=== PATIENT | female | born 1935 | race Caucasian/White ===

== ENCOUNTER 2019-07-29 14:12 | Day surgery (SDC) | payer MEDICARE ==
[~2019-07-29 14:12] MED LIST: Acetaminophen 500 MG TAB PO PRN; Sodium Chloride 0.9% 1,000 ML IV SCH; Vedolizumab 300 MG in Sodium Chloride 0.9% 250 ML 250 ML IVPB SCH
[2019-07-29 15:23] VITALS: BP 135/60; TEMP 98.1
== END 2019-07-29 15:27 | disposition home or self-care (01) ==
LOC: ONC/OP 14:12
PROVIDERS: ATTEND Internal Medicine Gastroenterology
DX: K51.90 Ulcerative colitis, unspecified, without complications (principal); Z88.0 Allergy status to penicillin; Z88.1 Allergy status to other antibiotic agents; Z88.8 Allergy status to other drugs, medicaments and biological substances
CPT/HCPCS: 96413; J3380; J7050

== ENCOUNTER 2019-08-16 14:01 | Outpatient (CLI) | payer MEDICARE ==
--- NOTE | 2019-08-16 14:46 | RAD ---
EXAM: XR Lumbar Spine 2 Or 3 View PROVIDED CLINICAL HISTORY: Numbness in hips and legs for 3 to 4 weeks. Low back pain. No known injury. COMPARISON: None FINDINGS: 5 nonrib-bearing lumbar-type vertebral bodies are present. Mild S-shaped curvature of thoracolumbar s pine is present. There is narrowing of the intervertebral disc spaces extending from the L2-3 level to the L5-S1 level with endplate degenerative changes are seen at the L4-5 level. Multilevel facet de generative changes are seen. Slight grade 1 anterolisthesis of L2 on L3 and L3 on L4 is seen. The vertebral body heights are within normal limits, and no fracture is identified. Multilevel osteophyte s are present. There is a linear lucency extending through the pars interarticularis of L5, but this is favored to be artifactual as opposed to pars defects. Vascular calcifications overlie the abd omen. IMPRESSION: 1. Multilevel degenerative changes with mild S-shaped scoliotic curvature of the thoracolumbar spine. 2. Slight anterolisthesis of L2 on L3 and L3 on L4.
--- NOTE | 2019-08-16 14:49 | RAD ---
EXAM: XR Cervical Spine 4 View Min PROVIDED CLINICAL HISTORY: Neck pain and shoulder numbness for 3 to 4 weeks. No known injury. COMPARISON: None FINDINGS: C1 to the cervicothoracic junction is seen on the lateral view. AP and odontoid views are not provide d. Degenerative changes are seen in the cervical spine with osteophyte formation and narrowing of the intervertebral disc spaces at the C5-C6, C6-7, and C7-T1 levels. No significant bony encroachment is seen on the neural foramina on the oblique views. Vertebral body heights and interspinous distances are within normal limits. Prevertebral soft tissues have a normal appearance. IMPRESSION: Multilevel degenerative changes cervical spine.
== END 2019-08-16 14:02 | disposition home or self-care (01) ==
LOC: BICRAD 14:01
PROVIDERS: ATTEND Family Medicine
DX: M54.5 Low back pain (principal); M54.2 Cervicalgia; M47.812 Spondylosis without myelopathy or radiculopathy, cervical region; M43.16 Spondylolisthesis, lumbar region; M41.9 Scoliosis, unspecified
CPT/HCPCS: 72050; 72100

== ENCOUNTER 2019-08-24 15:08 | Outpatient (CLI) | payer MEDICARE ==
--- NOTE | 2019-08-24 16:37 | MRI ---
MRI LUMBAR SPINE NONCONTRAST: DATE: 08/24/2019 HISTORY: 84-year-old female with low back pain and bilateral lumbar radiculopathy. ICD-10: "M 47.16 spondylosis of lumbar spine " COMPARISON: None FINDINGS: 5 lumbar-type vertebrae. Conus medullaris terminates at L1 2-3. Vertebral body heights are maintained . T12-L1:Normal L1-2:Disc space maintained. Minimal retrolisthesis of L1 on L2. Mild disc bulge. Minimal central sten osis. Mild bilateral neural foraminal stenosis. Mild bilateral facet DJD. L2-3:Moderate bilateral facet DJD results in mild grade 1 anterolisthesis of L2 on L3. Mild to modera te disc space narrowing. Diffuse disc bulge. Mild bilateral neural foraminal stenosis. Distortion of spinal canal and thecal sac. Mild to moderate decrease in AP dimension of thecal sac. Transverse d imension preserved. L3-4:Moderate to severe bilateral facet DJD results in grade 1 anterolisthesis of L3 on L4. Moderate disc space narrowing. Prominent diffuse disc bulge. Mild to moderate bilateral neural foraminal stenosis. Somewhat severe central spinal canal stenosis. CSF signal is not completely effaced. L4-5:Moderate disc space narrowing. Degenerative endplate irregularities and mild Modic type I endpla te changes as well as Modic type II changes. Disc bulge. Mild to moderate right neural foraminal stenosis. Lesser degree of mild to moderate left neural foraminal stenosis. Moderate bilateral facet DJD. Mild to moderate central spinal canal stenosis. Moderate lateral recess stenosis bilaterally. L5-S1:Mild disc space narrowing. Diffuse disc bulge. Superimposed small focal central disc herniation abuts bilateral S1 nerve roots without significantly displacing them. Mild lateral recess stenosis bilaterally. Very mild central spinal canal stenosis. Moderate ligamentum flavum thickening. Moderate bilateral facet DJD. IMPRESSION: 1) lumbar spondylosis, with multilevel moderate degenerative disc disease and lower level high-grade facet osteoarthrosis. 2) grade 1 spondylolisthesis at L2-3 and L3-4 due to facet osteoarthrosis. 3) somewhat severe central spinal canal stenosis at L3-4.
== END 2019-08-24 15:09 | disposition home or self-care (01) ==
LOC: BICMRI 15:08
PROVIDERS: ATTEND Family Medicine
DX: M47.26 Other spondylosis with radiculopathy, lumbar region (principal); M51.16 Intervertebral disc disorders with radiculopathy, lumbar region; M43.16 Spondylolisthesis, lumbar region; M48.061 Spinal stenosis, lumbar region without neurogenic claudication
CPT/HCPCS: 72148

== ENCOUNTER 2019-09-28 13:50 | Day surgery (SDC) | payer MEDICARE ==
[~2019-09-28 13:50] MED LIST changes: +Acetaminophen 500 MG TAB PO SCH
[2019-09-28] MEDS ORDERED: Sodium Chloride 0.9% 20 ML ONE (13:58)
[2019-09-28 14:01] VITALS: BP 146/66; TEMP 98.6
== END 2019-09-28 14:49 | disposition home or self-care (01) ==
LOC: ONC/OP 13:50
PROVIDERS: ATTEND Internal Medicine Gastroenterology
DX: K51.90 Ulcerative colitis, unspecified, without complications (principal); Z88.0 Allergy status to penicillin; Z88.1 Allergy status to other antibiotic agents; Z88.6 Allergy status to analgesic agent; Z88.8 Allergy status to other drugs, medicaments and biological substances
CPT/HCPCS: 96413; J3380; J7050

== ENCOUNTER → 2019-12-07 | Day surgery (SDC) | payer MEDICARE ==
[2019-12-07 14:27] VITALS: BP 141/64; TEMP 97.6
== END ==
LOC: ONC/OP 14:20
PROVIDERS: ATTEND Internal Medicine Gastroenterology
DX: K51.90 Ulcerative colitis, unspecified, without complications (principal); Z88.0 Allergy status to penicillin; Z88.1 Allergy status to other antibiotic agents; Z88.8 Allergy status to other drugs, medicaments and biological substances
CPT/HCPCS: 96413; J3380; J7050

== ENCOUNTER 2020-02-09 13:50 | Day surgery (SDC) | payer MEDICARE ==
[2020-02-09 15:06] VITALS: BP 127/60; TEMP 98.5
== END 2020-02-09 15:22 | disposition home or self-care (01) ==
LOC: ONC/OP 13:50
PROVIDERS: ATTEND Internal Medicine Gastroenterology
DX: K51.90 Ulcerative colitis, unspecified, without complications (principal); Z88.0 Allergy status to penicillin; Z88.1 Allergy status to other antibiotic agents; Z88.6 Allergy status to analgesic agent; Z88.8 Allergy status to other drugs, medicaments and biological substances
CPT/HCPCS: 96413; J3380; J7050

== ENCOUNTER 2020-04-12 13:56 | Day surgery (SDC) | payer MEDICARE | END 2020-04-12 16:05 | disposition home or self-care (01) | LOC: ONC/OP 13:56 | PROVIDERS: ATTEND Internal Medicine Gastroenterology | DX: K51.90 Ulcerative colitis, unspecified, without complications (principal); Z88.0 Allergy status to penicillin; Z88.1 Allergy status to other antibiotic agents; Z88.8 Allergy status to other drugs, medicaments and biological substances | CPT/HCPCS: 96413; J3380; J7050 ==

== ENCOUNTER 2020-06-28 14:33 | Day surgery (SDC) | payer MEDICARE ==
[~2020-06-28 14:33] MED LIST changes: -Acetaminophen 500 MG TAB PO SCH; -Sodium Chloride 0.9% 1,000 ML IV SCH
== END 2020-06-28 15:39 | disposition home or self-care (01) ==
LOC: ONC/OP 14:33
PROVIDERS: ATTEND Internal Medicine Gastroenterology
DX: K51.90 Ulcerative colitis, unspecified, without complications (principal); Z88.0 Allergy status to penicillin; Z88.1 Allergy status to other antibiotic agents; Z88.8 Allergy status to other drugs, medicaments and biological substances
CPT/HCPCS: 96413; J3380; J7050

== ENCOUNTER 2020-08-09 14:19 | Day surgery (SDC) | payer MEDICARE ==
[2020-08-09 15:05] VITALS: BP 134/60; TEMP 97.9
== END 2020-08-09 15:53 | disposition home or self-care (01) ==
LOC: ONC/OP 14:19
PROVIDERS: ATTEND Internal Medicine Gastroenterology
DX: K51.90 Ulcerative colitis, unspecified, without complications (principal); Z88.0 Allergy status to penicillin; Z88.1 Allergy status to other antibiotic agents; Z88.6 Allergy status to analgesic agent; Z88.8 Allergy status to other drugs, medicaments and biological substances
CPT/HCPCS: 96413; J3380; J7050

== ENCOUNTER 2020-10-04 14:20 | Day surgery (SDC) | payer MEDICARE ==
[2020-10-04 14:51] VITALS: BP 124/58; TEMP 98.7
== END 2020-10-04 16:29 | disposition home or self-care (01) ==
LOC: ONC/OP 14:20
PROVIDERS: ATTEND Internal Medicine Gastroenterology
DX: K51.90 Ulcerative colitis, unspecified, without complications (principal); Z88.0 Allergy status to penicillin; Z88.1 Allergy status to other antibiotic agents; Z88.6 Allergy status to analgesic agent; Z88.8 Allergy status to other drugs, medicaments and biological substances
CPT/HCPCS: 96413; J3380; J7050

== ENCOUNTER 2020-10-25 12:35 | Outpatient (CLI) | payer MEDICARE | END 2020-10-25 12:36 | disposition home or self-care (01) | LOC: BICMRI 12:35 | PROVIDERS: ATTEND Surgery | DX: M47.26 Other spondylosis with radiculopathy, lumbar region (principal); M43.16 Spondylolisthesis, lumbar region; M48.061 Spinal stenosis, lumbar region without neurogenic claudication; M48.07 Spinal stenosis, lumbosacral region | CPT/HCPCS: 72110; 72148 ==

== ENCOUNTER 2020-11-22 12:48 | Day surgery (SDC) | payer MEDICARE ==
[2020-11-22] MEDS ORDERED: Sodium Chloride 0.9% 20 ML ONE (12:53)
[2020-11-22 13:37] VITALS: BP 141/65; TEMP 98.4
== END 2020-11-22 13:57 | disposition home or self-care (01) ==
LOC: ONC/OP 12:48
PROVIDERS: ATTEND Internal Medicine Gastroenterology
DX: K51.90 Ulcerative colitis, unspecified, without complications (principal); Z88.0 Allergy status to penicillin; Z88.1 Allergy status to other antibiotic agents; Z88.8 Allergy status to other drugs, medicaments and biological substances
CPT/HCPCS: 96413; J3380; J7050

== ENCOUNTER 2020-12-07 16:04 | Outpatient (CLI) | payer MEDICARE ==
[2020-12-07 17:28] LABS: Hemoglobin 11.6 g/dL (12.0-15.5); Mean Corpuscular HGB CONC 32.2 g/dL (32.0-36.0); Mean Corpuscular Hemoglobin 30.2 pg (27.0-33.0); Mean Corpuscular Volume 93.8 fl (81.6-98.3); Mean Platelet Volume 10.6 fl (7.4-10.4); Platelet Count 300 10x3/uL (150-450); RBC Distribution Width 13.4 % (11.5-14.5); Red Blood Cell (RBC) Count 3.84 10x6/uL (3.90-5.03); White Blood Cell (WBC) Count 8.1 10x3/uL (3.5-10.5)
[2020-12-07 17:38] LABS: Anion Gap 14 mmol/L (10-20); BUN (Urea Nitrogen) 16 mg/dL (9.8-20.1); Calc. Creatinine Clearance 0 mL/min (70-130); Calcium 9.7 mg/dL (7.8-10.44); Carbon Dioxide 23 mmol/L (23-31); Chloride 102 mmol/L (98-107); Glucose 124 mg/dL (83-110); PTT 26.2 sec (22.0-33.0); Potassium 4.3 mmol/L (3.5-5.1); Prothrombin Time 10.7 sec (9.5-12.1); Sodium 135 mmol/L (136-145)
[2020-12-08 09:11] LABS: SARS-CoV-2 PCR by NAA Not Detected (NotDetected)
== END 2020-12-07 16:05 | disposition home or self-care (01) ==
LOC: LABBT 16:04
PROVIDERS: ATTEND Surgery
DX: Z01.818 Encounter for other preprocedural examination (principal); M54.16 Radiculopathy, lumbar region; M48.062 Spinal stenosis, lumbar region with neurogenic claudication; K14.8 Other diseases of tongue; K13.70 Unspecified lesions of oral mucosa; Z20.822 Contact with and (suspected) exposure to COVID-19
CPT/HCPCS: 80048; 85027; 85610; 85730; 93005; U0003; U0005; 93010

== ENCOUNTER 2020-12-12 08:31 | Inpatient (IN) | payer MEDICARE ==
[2020-12-11 13:10] VITALS: BMI 26.6
[2020-12-12] MEDS ORDERED: Levofloxacin 500 mg/D5W 100 ml Premix Bag ONE (08:56)
[2020-12-12] MEDS ORDERED: PROPOFOL 20 ML ONE (11:09)
[2020-12-12] MEDS ORDERED: Rocuronium Bromide 50 MG/5 ML VIAL ONE (11:09)
[2020-12-12] MEDS ORDERED: Thrombin 5000 UNITS/5 ML VIAL ONE ×2 (12:50)
[2020-12-12] MEDS ORDERED: Fentanyl 250 MCG/5 ML VIAL ONE (12:56)
[2020-12-12] MEDS ORDERED: Ketamine 50 MG/ML (10ML VIAL) ONE (13:08)
[2020-12-12] MEDS ORDERED: Fentanyl 100 MCG/2 ML VIAL ONE ×5 (13:13→17:12)
[2020-12-12] MEDS ORDERED: Glycopyrrolate 0.2 MG/ML 5 ML SYRINGE ONE (13:23)
[2020-12-12] MEDS ORDERED: Lidocaine 1% PF 5 ML VIAL ONE (13:23)
[2020-12-12] MEDS ORDERED: PROPOFOL 200 MG/20 ML VIAL ONE (13:23)
[2020-12-12] MEDS ORDERED: Rocuronium Bromide 10 MG/ML (10ML VIAL) ONE (13:23)
[2020-12-12] MEDS ORDERED: PHENYLEPHRINE-NS 100 MCG/ML 10 ML SYRINGE ONE (13:23)
[2020-12-12] MEDS ORDERED: Phenylephrine 10 MG/ML VIAL ONE (13:46)
[2020-12-12] MEDS ORDERED: Acetaminophen 325 MG TAB PO PRN (15:56)
[2020-12-12] MEDS ORDERED: Ondansetron HCl/PF 4 MG/2 ML Vial IVP PRN (16:09)
[2020-12-12] MEDS ORDERED: Morphine Sulfate 2 MG/ML SYRINGE SLOW IVP PRN (16:09)
[2020-12-12] MEDS ORDERED: Morphine 4 MG/ML VIAL ONE (16:35)
[2020-12-12] MEDS: Sodium Chloride 0.9% 1,000 ML IV SCH (19:24)
[2020-12-12] MEDS: traMADol HCl 50 MG TAB PO PRN (19:34)
[2020-12-12] MEDS: Fluticasone Propionate Nasal Spray 16 gm Bottle NASAL SCH (20:50)
[2020-12-12] MEDS: Senokot 8.6 MG TAB PO PRN (21:02)
[2020-12-12] MEDS: Acetaminophen/Codeine 30-300mg Tablet PO PRN (21:51)
[2020-12-13] MEDS: HYDROcodone/Acetaminophen 7.5/325 mg Tablet PO PRN ×2 (01:05→11:25)
[2020-12-13] MEDS: traMADol HCl 50 MG TAB PO PRN ×2 (05:36→16:43)
[2020-12-13] MEDS: Levothyroxine Sodium 50 MCG TAB PO SCH (05:36)
[2020-12-13] MEDS: Sodium Chloride 0.9% 1,000 ML IV SCH ×2 (06:38→17:31)
[2020-12-13] MEDS: Mometasone 100 MCG/Formoterol 5 MCG 120 PUFF INHALER INH SCH (06:46)
[2020-12-13] MEDS: Acetaminophen/Codeine 30-300mg Tablet PO PRN (08:10)
[2020-12-13] MEDS: Escitalopram Oxalate 10 mg Tablet PO SCH (08:11)
[2020-12-13] MEDS: guaiFENesin/DM ER PO SCH ×2 (10:21→21:36)
[2020-12-13] MEDS: Calcium Carbonate 500 MG ChewTAB PO PRN ×2 (11:24→22:30)
[2020-12-13 11:27] LABS: #Eosinphils 0.1 thou/uL (0.0-0.7); #Lymphocytes 0.9 thou/uL (1.20-3.40); #Monocytes 0.8 thou/uL (0.11-0.59); #Neutrophils 7.3 thou/uL (1.40-6.50); %Basophils 0.4 % (0.0-1.0); %Eosinophils 1.4 % (0.0-10.0); %Lymphocytes 9.9 % (21.0-51.0); %Monocytes 8.7 % (0.0-10.0); %Neutrophils 79.6 % (42.0-75.0); Hemoglobin 10.1 g/dL (12.0-16.0); Mean Corpuscular HGB CONC 33.7 g/dL (32.0-36.0); Mean Corpuscular Hemoglobin 31.6 pg (27.0-31.0); Mean Corpuscular Volume 93.7 fL (78.0-98.0); Mean Platelet Volume 7.8 fL (7.4-10.4); Platelet Count 235 thou/uL (130-400); RBC Distribution Width 12.3 % (11.5-14.5); Red Blood Cell (RBC) Count 3.19 mill/uL (4.20-5.40); White Blood Cell (WBC) Count 9.2 thou/uL (4.8-10.8)
[2020-12-13 11:47] LABS: Anion Gap 12 mmol/L (10-20); BUN (Urea Nitrogen) 10 mg/dL (9.8-20.1); Calc. Creatinine Clearance 57 mL/min (70-130); Calcium 8.5 mg/dL (7.8-10.44); Carbon Dioxide 24 mmol/L (23-31); Chloride 102 mmol/L (98-107); Glucose 112 mg/dL (83-110); Potassium 3.8 mmol/L (3.5-5.1); Sodium 134 mmol/L (136-145)
[2020-12-13] MEDS ORDERED: Ondansetron PF 4 MG/2 ML Vial IVP PRN (12:33)
[2020-12-13] MEDS: Chloraseptic Spray 180 ml Bottle PO PRN (14:29)
[2020-12-13] MEDS: Morphine 2 MG/ML VIAL SLOW IVP PRN ×3 (16:43→21:35)
[2020-12-13] MEDS: SUCRALFATE PO PRN (21:35)
[2020-12-13] MEDS: Fluticasone Propionate Nasal Spray 16 gm Bottle NASAL SCH (21:36)
[2020-12-14] MEDS: Senokot 8.6 MG TAB PO PRN ×2 (00:48→20:21)
[2020-12-14] MEDS: HYDROcodone/Acetaminophen 7.5/325 mg Tablet PO PRN ×4 (00:49→18:27)
[2020-12-14] MEDS: Levothyroxine Sodium 50 MCG TAB PO SCH (05:42)
[2020-12-14] MEDS: Calcium Carbonate 500 MG ChewTAB PO PRN (06:16)
[2020-12-14 06:29] LABS: #Eosinphils 0.1 thou/uL (0.0-0.7); #Lymphocytes 1.4 thou/uL (1.20-3.40); #Monocytes 1.1 thou/uL (0.11-0.59); #Neutrophils 7.9 thou/uL (1.40-6.50); %Basophils 0.1 % (0.0-1.0); %Eosinophils 0.7 % (0.0-10.0); %Lymphocytes 13.7 % (21.0-51.0); %Monocytes 10.2 % (0.0-10.0); %Neutrophils 75.3 % (42.0-75.0); Hemoglobin 9.7 g/dL (12.0-16.0); Mean Corpuscular HGB CONC 32.5 g/dL (32.0-36.0); Mean Corpuscular Hemoglobin 30.5 pg (27.0-31.0); Mean Corpuscular Volume 93.6 fL (78.0-98.0); Mean Platelet Volume 7.9 fL (7.4-10.4); Platelet Count 222 thou/uL (130-400); RBC Distribution Width 12.2 % (11.5-14.5); Red Blood Cell (RBC) Count 3.18 mill/uL (4.20-5.40); White Blood Cell (WBC) Count 10.5 thou/uL (4.8-10.8)
[2020-12-14 06:52] LABS: Anion Gap 11 mmol/L (10-20); BUN (Urea Nitrogen) 8 mg/dL (9.8-20.1); Calc. Creatinine Clearance 60 mL/min (70-130); Calcium 8.6 mg/dL (7.8-10.44); Carbon Dioxide 25 mmol/L (23-31); Chloride 103 mmol/L (98-107); Glucose 129 mg/dL (83-110); Potassium 3.8 mmol/L (3.5-5.1); Sodium 135 mmol/L (136-145)
[2020-12-14] MEDS: DEXILANT 60 MG PO SCH (07:20)
[2020-12-14] MEDS: Escitalopram Oxalate 10 mg Tablet PO SCH (09:01)
[2020-12-14] MEDS: guaiFENesin/DM ER PO SCH ×2 (09:02→20:22)
[2020-12-14] MEDS: Chloraseptic Spray 180 ml Bottle PO PRN (09:12)
[2020-12-14] MEDS: Mometasone 100 MCG/Formoterol 5 MCG 120 PUFF INHALER INH SCH ×3 (10:04→18:55)
[2020-12-14] MEDS: tiZANidine HCl 4 MG TAB PO PRN ×2 (11:11→20:25)
[2020-12-14] MEDS: SUCRALFATE PO PRN (11:11)
[2020-12-14] MEDS: Sodium Chloride 0.9% 1,000 ML IV SCH ×2 (16:41→21:43)
[2020-12-14] MEDS: Fluticasone Propionate Nasal Spray 16 gm Bottle NASAL SCH (20:21)
[2020-12-15] MEDS: HYDROcodone/Acetaminophen 7.5/325 mg Tablet PO PRN ×3 (00:06→12:33)
[2020-12-15] MEDS: Levothyroxine Sodium 50 MCG TAB PO SCH (05:51)
[2020-12-15] MEDS: Mometasone 100 MCG/Formoterol 5 MCG 120 PUFF INHALER INH SCH ×2 (07:09→18:25)
[2020-12-15] MEDS: guaiFENesin/DM ER PO SCH ×3 (08:28→20:02)
[2020-12-15] MEDS: Escitalopram Oxalate 10 mg Tablet PO SCH (08:28)
[2020-12-15] MEDS: SUCRALFATE PO PRN (08:29)
[2020-12-15] MEDS: DEXILANT 60 MG PO SCH (08:30)
[2020-12-15] MEDS: traMADol HCl 50 MG TAB PO PRN ×2 (09:14→15:31)
[2020-12-15] MEDS: Sodium Chloride 0.9% 1,000 ML IV SCH (12:10)
[2020-12-15] MEDS ORDERED: Magnesium Citrate 300 ML BOT PO SCH (12:31)
[2020-12-15] MEDS ORDERED: Milk Of Magnesia 30 ML UDCUP PO PRN (12:31)
[2020-12-15] MEDS: Senokot 8.6 MG TAB PO PRN (12:33)
[2020-12-15] MEDS: Fluticasone Propionate Nasal Spray 16 gm Bottle NASAL SCH (20:02)
[2020-12-16] MEDS: Sodium Chloride 0.9% 1,000 ML IV SCH ×2 (01:37→12:03)
[2020-12-16] MEDS: HYDROcodone/Acetaminophen 7.5/325 mg Tablet PO PRN ×3 (02:45→19:54)
[2020-12-16] MEDS: Levothyroxine Sodium 50 MCG TAB PO SCH (05:17)
[2020-12-16] MEDS: Mometasone 100 MCG/Formoterol 5 MCG 120 PUFF INHALER INH SCH ×2 (07:44→22:37)
[2020-12-16] MEDS: DEXILANT 60 MG PO SCH (08:40)
[2020-12-16] MEDS: guaiFENesin/DM ER PO SCH ×2 (09:31→19:54)
[2020-12-16] MEDS: Escitalopram Oxalate 10 mg Tablet PO SCH (09:31)
[2020-12-16] MEDS: SUCRALFATE PO PRN (09:34)
[2020-12-16] MEDS: Fluticasone Propionate Nasal Spray 16 gm Bottle NASAL SCH (19:54)
[2020-12-16] MEDS: Bisacodyl 10 MG SUPP PR PRN (19:54)
[2020-12-17] MEDS: Sodium Chloride 0.9% 1,000 ML IV SCH ×2 (01:09→15:30)
[2020-12-17] MEDS: Levothyroxine Sodium 50 MCG TAB PO SCH (04:03)
[2020-12-17] MEDS: HYDROcodone/Acetaminophen 7.5/325 mg Tablet PO PRN ×2 (04:03→19:06)
[2020-12-17] MEDS: Mometasone 100 MCG/Formoterol 5 MCG 120 PUFF INHALER INH SCH ×2 (07:39→19:09)
[2020-12-17] MEDS: DEXILANT 60 MG PO SCH (07:59)
[2020-12-17] MEDS: Escitalopram Oxalate 10 mg Tablet PO SCH (09:13)
[2020-12-17] MEDS: guaiFENesin/DM ER PO SCH ×2 (09:13→20:40)
[2020-12-17] MEDS: SUCRALFATE PO PRN (11:04)
[2020-12-17] MEDS: Fluticasone Propionate Nasal Spray 16 gm Bottle NASAL SCH (20:39)
[2020-12-18] MEDS: HYDROcodone/Acetaminophen 7.5/325 mg Tablet PO PRN ×2 (00:58→20:14)
[2020-12-18] MEDS: Levothyroxine Sodium 50 MCG TAB PO SCH (04:57)
[2020-12-18] MEDS: Sodium Chloride 0.9% 1,000 ML IV SCH ×2 (06:37→18:49)
[2020-12-18] MEDS: Mometasone 100 MCG/Formoterol 5 MCG 120 PUFF INHALER INH SCH ×2 (07:58→18:14)
[2020-12-18] MEDS: guaiFENesin/DM ER PO SCH ×2 (09:34→20:16)
[2020-12-18] MEDS: Escitalopram Oxalate 10 mg Tablet PO SCH (09:34)
[2020-12-18] MEDS: DEXILANT 60 MG PO SCH (09:36)
[2020-12-18] MEDS: Acetaminophen/Codeine 30-300mg Tablet PO PRN (09:41)
[2020-12-18] MEDS: Fluticasone Propionate Nasal Spray 16 gm Bottle NASAL SCH (20:15)
[2020-12-19] MEDS: HYDROcodone/Acetaminophen 7.5/325 mg Tablet PO PRN ×3 (02:06→21:13)
[2020-12-19] MEDS: Levothyroxine Sodium 50 MCG TAB PO SCH (04:44)
[2020-12-19] MEDS: Mometasone 100 MCG/Formoterol 5 MCG 120 PUFF INHALER INH SCH ×2 (07:26→19:00)
[2020-12-19] MEDS: Sodium Chloride 0.9% 1,000 ML IV SCH ×2 (09:17→19:46)
[2020-12-19] MEDS: Escitalopram Oxalate 10 mg Tablet PO SCH (09:19)
[2020-12-19] MEDS: guaiFENesin/DM ER PO SCH ×2 (09:19→21:05)
[2020-12-19] MEDS: DEXILANT 60 MG PO SCH (09:27)
[2020-12-19] MEDS: Bisacodyl 10 MG SUPP PR PRN (13:00)
[2020-12-19] MEDS: Acetaminophen/Codeine 30-300mg Tablet PO PRN (18:36)
[2020-12-19] MEDS: Fluticasone Propionate Nasal Spray 16 gm Bottle NASAL SCH (21:05)
[2020-12-19] MEDS: SUCRALFATE PO PRN (21:06)
[2020-12-20] MEDS: Levothyroxine Sodium 50 MCG TAB PO SCH (05:49)
[2020-12-20] MEDS: Mometasone 100 MCG/Formoterol 5 MCG 120 PUFF INHALER INH SCH ×2 (07:46→18:18)
[2020-12-20] MEDS: DEXILANT 60 MG PO SCH (08:11)
[2020-12-20] MEDS: guaiFENesin/DM ER PO SCH ×2 (09:10→20:44)
[2020-12-20] MEDS: Escitalopram Oxalate 10 mg Tablet PO SCH (09:10)
[2020-12-20] MEDS: Sodium Chloride 0.9% 1,000 ML IV SCH (09:57)
[2020-12-20] MEDS: SUCRALFATE PO PRN ×2 (10:22→14:45)
[2020-12-20 12:41] LABS: #Basophils 0.1 thou/uL (0.0-0.2); #Eosinphils 0.3 thou/uL (0.0-0.7); #Lymphocytes 1.2 thou/uL (1.20-3.40); #Monocytes 0.8 thou/uL (0.11-0.59); %Basophils 0.7 % (0.0-1.0); %Eosinophils 2.6 % (0.0-10.0); %Lymphocytes 11.9 % (21.0-51.0); %Monocytes 7.6 % (0.0-10.0); %Neutrophils 77.3 % (42.0-75.0); Hemoglobin 9.9 g/dL (12.0-16.0); Mean Corpuscular HGB CONC 33.6 g/dL (32.0-36.0); Mean Corpuscular Hemoglobin 31.6 pg (27.0-31.0); Mean Corpuscular Volume 93.9 fL (78.0-98.0); Mean Platelet Volume 7.5 fL (7.4-10.4); Platelet Count 409 thou/uL (130-400); RBC Distribution Width 12.1 % (11.5-14.5); Red Blood Cell (RBC) Count 3.13 mill/uL (4.20-5.40); White Blood Cell (WBC) Count 10.3 thou/uL (4.8-10.8)
[2020-12-20 13:08] LABS: Anion Gap 11 mmol/L (10-20); BUN (Urea Nitrogen) 12 mg/dL (9.8-20.1); Calc. Creatinine Clearance 63 mL/min (70-130); Calcium 8.7 mg/dL (7.8-10.44); Carbon Dioxide 24 mmol/L (23-31); Chloride 103 mmol/L (98-107); Glucose 135 mg/dL (83-110); Potassium 4.1 mmol/L (3.5-5.1); Sodium 134 mmol/L (136-145)
[2020-12-20] MEDS: HYDROcodone/Acetaminophen 7.5/325 mg Tablet PO PRN ×2 (14:44→20:44)
[2020-12-20] MEDS ORDERED: Lidocaine 2% Jelly 5 ML TUBE TOP SCH (19:15)
[2020-12-20] MEDS: Fluticasone Propionate Nasal Spray 16 gm Bottle NASAL SCH (20:43)
[2020-12-20] MEDS: [UNRECOGNIZED DRUG - MIXTURE] PR SCH (20:45)
[2020-12-20] MEDS: Polyethylene Glycol 3350 17 GM Packet PO SCH (20:47)
[2020-12-21] MEDS: Sodium Chloride 0.9% 1,000 ML IV SCH (01:14)
[2020-12-21 04:36] VITALS: TEMP 98.9
[2020-12-21] MEDS: Levothyroxine Sodium 50 MCG TAB PO SCH (06:03)
[2020-12-21] MEDS: HYDROcodone/Acetaminophen 7.5/325 mg Tablet PO PRN (06:10)
[2020-12-21 07:39] VITALS: BP 128/71
[2020-12-21] MEDS: Mometasone 100 MCG/Formoterol 5 MCG 120 PUFF INHALER INH SCH (07:42)
[2020-12-21] MEDS: Polyethylene Glycol 3350 17 GM Packet PO SCH (08:51)
[2020-12-21] MEDS: guaiFENesin/DM ER PO SCH (08:51)
[2020-12-21] MEDS: Escitalopram Oxalate 10 mg Tablet PO SCH (08:51)
[2020-12-21] MEDS: [UNRECOGNIZED DRUG - MIXTURE] PR SCH (08:53)
[2020-12-21] MEDS: DEXILANT 60 MG PO SCH (08:53)
== END 2020-12-21 11:29 | disposition swing bed (61) | DRG 516 ==
LOC: SDC 08:31 → SURG A 15:55
PROVIDERS: ADMIT Surgery; ATTEND Surgery
PROC: 01NB0ZZ Release Lumbar Nerve, Open Approach (ICD-10-PCS; principal; 2020-12-12)
PROC: 01NR0ZZ Release Sacral Nerve, Open Approach (ICD-10-PCS; 2020-12-12)
DX: M48.062 Spinal stenosis, lumbar region with neurogenic claudication (principal); K92.1 Melena; K51.90 Ulcerative colitis, unspecified, without complications; M48.07 Spinal stenosis, lumbosacral region; K59.00 Constipation, unspecified; J44.9 Chronic obstructive pulmonary disease, unspecified; K21.9 Gastro-esophageal reflux disease without esophagitis; M54.16 Radiculopathy, lumbar region; M19.90 Unspecified osteoarthritis, unspecified site; G89.29 Other chronic pain; Z96.652 Presence of left artificial knee joint; K60.2 Anal fissure, unspecified; I25.10 Atherosclerotic heart disease of native coronary artery without angina pectoris; I25.2 Old myocardial infarction; Z90.49 Acquired absence of other specified parts of digestive tract; Z90.89 Acquired absence of other organs; Z98.890 Other specified postprocedural states; Z88.1 Allergy status to other antibiotic agents; Z88.8 Allergy status to other drugs, medicaments and biological substances
CPT/HCPCS: 36415; 76000; 80048; 85025; J1956; J2270; J2370; J2405; J2704; J3010; J3370

== ENCOUNTER → 2021-01-09 | Day surgery (SDC) | payer MEDICARE ==
[~2021-01-09] MED LIST changes: +Sodium Chloride 0.9% 20 ML ONE
[2021-01-09 15:44] VITALS: BP 130/59; TEMP 98.6
== END ==
LOC: ONC/OP 14:11
PROVIDERS: ATTEND Internal Medicine Gastroenterology
DX: K51.90 Ulcerative colitis, unspecified, without complications (principal); Z88.0 Allergy status to penicillin; Z88.1 Allergy status to other antibiotic agents; Z88.8 Allergy status to other drugs, medicaments and biological substances
CPT/HCPCS: 96413; J3380; J7050

== ENCOUNTER 2021-02-27 13:57 | Day surgery (SDC) | payer MEDICARE ==
[~2021-02-27 13:57] MED LIST changes: -Sodium Chloride 0.9% 20 ML ONE
[2021-02-27] MEDS ORDERED: Sodium Chloride 0.9% 10 ML ONE ×2 (14:12)
[2021-02-27 14:35] VITALS: BP 122/55; TEMP 98.3
== END 2021-02-27 15:04 | disposition home or self-care (01) ==
LOC: ONC/OP 13:57
PROVIDERS: ATTEND Internal Medicine Gastroenterology
DX: K51.90 Ulcerative colitis, unspecified, without complications (principal); Z88.0 Allergy status to penicillin; Z88.1 Allergy status to other antibiotic agents; Z88.6 Allergy status to analgesic agent; Z88.8 Allergy status to other drugs, medicaments and biological substances
CPT/HCPCS: 96413; J3380; J7050

== ENCOUNTER 2021-04-09 15:07 | Outpatient (CLI) | payer MEDICARE | END 2021-04-09 15:08 | disposition home or self-care (01) | LOC: SCSMRI 15:07 | PROVIDERS: ATTEND Specialist | DX: M96.1 Postlaminectomy syndrome, not elsewhere classified (principal); M51.16 Intervertebral disc disorders with radiculopathy, lumbar region; M47.26 Other spondylosis with radiculopathy, lumbar region; Z98.890 Other specified postprocedural states | CPT/HCPCS: 72120; 72158; 82565 ==

== ENCOUNTER 2021-05-09 13:40 | Outpatient (CLI) | payer MEDICARE | END 2021-05-09 13:41 | disposition home or self-care (01) | LOC: BICULT 13:40 | PROVIDERS: ATTEND Urology | DX: R35.0 Frequency of micturition (principal); R10.30 Lower abdominal pain, unspecified | CPT/HCPCS: 76770 ==

== ENCOUNTER 2021-12-07 13:35 | Observation (INO) | payer MEDICARE ==
[2021-12-07 14:00] LABS: #Basophils 0.1 thou/uL (0.0-0.2); #Eosinphils 0.2 thou/uL (0.0-0.7); #Lymphocytes 1.5 thou/uL (1.20-3.40); #Monocytes 0.4 thou/uL (0.11-0.59); #Neutrophils 4.3 thou/uL (1.40-6.50); %Basophils 0.8 % (0.0-1.0); %Eosinophils 3.2 % (0.0-10.0); %Lymphocytes 23.2 % (21.0-51.0); %Monocytes 6.3 % (0.0-10.0); %Neutrophils 66.5 % (42.0-75.0); Hemoglobin 11.7 g/dL (12.0-16.0); Mean Corpuscular HGB CONC 33.1 g/dL (32.0-36.0); Mean Corpuscular Hemoglobin 31.8 pg (27.0-31.0); Mean Platelet Volume 7.4 fL (7.4-10.4); Platelet Count 269 thou/uL (130-400); RBC Distribution Width 11.9 % (11.5-14.5); Red Blood Cell (RBC) Count 3.68 mill/uL (4.20-5.40); White Blood Cell (WBC) Count 6.4 thou/uL (4.8-10.8)
[2021-12-07 14:31] LABS: ALT (SGPT) 13 U/L (8-55); AST (SGOT) 15 U/L (5-34); Albumin 3.7 g/dL (3.4-4.8); Alkaline Phosphatase 64 U/L (40-110); Anion Gap 13 mmol/L (10-20); BUN (Urea Nitrogen) 11 mg/dL (9.8-20.1); Bilirubin, Total 0.7 mg/dL (0.2-1.2); Calc. Creatinine Clearance 0 mL/min (70-130); Calcium 9.2 mg/dL (7.8-10.44); Carbon Dioxide 24 mmol/L (23-31); Chloride 104 mmol/L (98-107); Estimated GFR 72; Globulin 2.9 g/dL (2.4-3.5); Glucose 106 mg/dL (83-110); Lipase 6 U/L (8-78); Potassium 4.2 mmol/L (3.5-5.1); Protein, Total 6.6 g/dL (5.8-8.1); Sodium 137 mmol/L (136-145)
[2021-12-07 17:57] LABS: Troponin I Less than 0.010 ng/mL (< 0.028)
[2021-12-07] MEDS ORDERED: Ondansetron ODT 4 MG TAB SL PRN (18:15)
[2021-12-07] MEDS ORDERED: Ondansetron PF 4 MG/2 ML Vial IVP PRN (18:15)
[2021-12-07] MEDS ORDERED: Acetaminophen 325 MG TAB PO PRN (18:15)
[2021-12-07 18:44] VITALS: BMI 27.0
[2021-12-07 20:42] LABS: Troponin I Less than 0.010 ng/mL (< 0.028)
[2021-12-07] MEDS ORDERED: Nitroglycerin 0.4 MG TAB (25 Tab Bottle) SL PRN (21:25)
[2021-12-07] MEDS ORDERED: Senokot 8.6 MG TAB PO PRN (21:30)
[2021-12-07] MEDS ORDERED: Melatonin 3 MG TAB PO PRN (21:31)
[2021-12-07] MEDS ORDERED: Enoxaparin Sodium 40 MG/0.4 ML SYRINGE SC SCH (21:45)
[2021-12-07] MEDS ORDERED: Senokot S 8.6-50 MG TAB PO PRN (22:45)
[2021-12-07] MEDS ORDERED: Loratadine 10 MG TAB PO PRN (22:45)
[2021-12-07] MEDS ORDERED: traMADol HCl 50 MG TAB PO PRN (22:45)
[2021-12-07] MEDS ORDERED: HYDROcodone/Acetaminophen 7.5/325 mg Tablet PO PRN (22:45)
[2021-12-07] MEDS ORDERED: Sucralfate 1 GM TAB PO PRN (22:45)
[2021-12-07] MEDS ORDERED: diphenhydrAMINE 50 MG CAP PO PRN (23:38)
[2021-12-07] MEDS: Acetaminophen 500 MG TAB PO PRN (23:52)
[2021-12-08 04:51] LABS: #Eosinphils 0.2 thou/uL (0.0-0.7); #Lymphocytes 1.8 thou/uL (1.20-3.40); #Monocytes 0.5 thou/uL (0.11-0.59); #Neutrophils 4.6 thou/uL (1.40-6.50); %Basophils 0.5 % (0.0-1.0); %Eosinophils 2.9 % (0.0-10.0); %Lymphocytes 25.2 % (21.0-51.0); %Monocytes 7.4 % (0.0-10.0); Hemoglobin 11.4 g/dL (12.0-16.0); Mean Corpuscular HGB CONC 33.3 g/dL (32.0-36.0); Mean Corpuscular Hemoglobin 32.2 pg (27.0-31.0); Mean Corpuscular Volume 96.7 fL (78.0-98.0); Mean Platelet Volume 7.8 fL (7.4-10.4); Platelet Count 258 thou/uL (130-400); RBC Distribution Width 11.8 % (11.5-14.5); Red Blood Cell (RBC) Count 3.55 mill/uL (4.20-5.40); White Blood Cell (WBC) Count 7.2 thou/uL (4.8-10.8)
[2021-12-08 05:13] LABS: Anion Gap 11 mmol/L (10-20); BUN (Urea Nitrogen) 10 mg/dL (9.8-20.1); Calc. Creatinine Clearance 59 mL/min (70-130); Calcium 9.3 mg/dL (7.8-10.44); Carbon Dioxide 26 mmol/L (23-31); Cardiac Risk 3.3 (Less than 4.5); Chloride 102 mmol/L (98-107); Cholesterol 190 mg/dl (< 200 Desired); Estimated GFR 71; Glucose 96 mg/dL (83-110); HDL Cholesterol 58 mg/dL (>60 Neg Risk); LDL Cholesterol, Calculated 117 mg/dL; Sodium 135 mmol/L (136-145); Triglycerides 76 mg/dL (Less than 150)
[2021-12-08] MEDS ORDERED: Levothyroxine Sodium 25 MCG TAB PO SCH (06:00)
[2021-12-08] MEDS ORDERED: Mometasone 100 MCG/Formoterol 5 MCG 120 PUFF INHALER INH SCH (06:30)
[2021-12-08] MEDS ORDERED: Regadenoson 0.4 MG/5 ML SYRINGE ONE (08:28)
[2021-12-08] MEDS ORDERED: Polyethylene Glycol 3350 17 GM Packet PO SCH (09:00)
[2021-12-08] MEDS ORDERED: Non-Formulary Item 1 EACH (Dexlansoprazole [Dexilant] 60 MG Cap.Dr.Bp) PO SCH (09:00)
[2021-12-08] MEDS ORDERED: Oxybutynin 5 MG TAB PO SCH (09:00)
[2021-12-08] MEDS ORDERED: Cholecalciferol 1,000 UNITS (25 MCG) TAB PO SCH (09:00)
[2021-12-08 15:55] VITALS: BP 114/54; TEMP 98.4
[2021-12-08] MEDS: Acetaminophen 500 MG TAB PO PRN (16:17)
[2021-12-08] MEDS ORDERED: Fluticasone Propionate Nasal Spray 16 gm Bottle NASAL SCH (21:00)
[2021-12-09] MEDS ORDERED: Ferrous Sulfate 325 MG TAB PO SCH (08:00)
== END 2021-12-08 16:45 | disposition home or self-care (01) ==
LOC: ERS 13:35 → 2SW 18:35
PROVIDERS: ADMIT Hospitalist; ATTEND Hospitalist
DX: R07.89 Other chest pain (principal); J44.9 Chronic obstructive pulmonary disease, unspecified; G47.00 Insomnia, unspecified; E03.9 Hypothyroidism, unspecified; M47.812 Spondylosis without myelopathy or radiculopathy, cervical region; M50.321 Other cervical disc degeneration at C4-C5 level; I07.1 Rheumatic tricuspid insufficiency; M54.50 Low back pain, unspecified; Z79.899 Other long term (current) drug therapy; Z88.0 Allergy status to penicillin; Z88.1 Allergy status to other antibiotic agents; Z88.6 Allergy status to analgesic agent; Z88.8 Allergy status to other drugs, medicaments and biological substances; Z20.822 Contact with and (suspected) exposure to COVID-19
CPT/HCPCS: 71045; 72040; 78452; 80048; 80053; 80061; 83690; 84484 ×2; 85025 ×2; 93005; 93017; 93306; 94640; 94760; 96372; 99285; A9500; G0378 ×3; U0003; U0005; 36415; J1650; J2785

== ENCOUNTER 2022-01-25 08:11 | Emergency (ER) | payer MEDICARE ==
[2022-01-25] MEDS ORDERED: Morphine 4 MG/ML VIAL ONE ×2 (08:39→10:24)
[2022-01-25] MEDS ORDERED: Ondansetron PF 4 MG/2 ML Vial ONE (08:39)
[2022-01-25 09:01] LABS: #Eosinphils 0.2 thou/uL (0.0-0.7); #Lymphocytes 1.1 thou/uL (1.20-3.40); #Monocytes 0.5 thou/uL (0.11-0.59); #Neutrophils 5.7 thou/uL (1.40-6.50); %Basophils 0.4 % (0.0-1.0); %Eosinophils 2.1 % (0.0-10.0); %Monocytes 6.5 % (0.0-10.0); Hemoglobin 11.5 g/dL (12.0-16.0); Mean Corpuscular HGB CONC 32.6 g/dL (32.0-36.0); Mean Corpuscular Volume 95.1 fl (78.0-98.0); Mean Platelet Volume 7.6 fL (7.4-10.4); Platelet Count 303 10x3/uL (130-400); RBC Distribution Width 11.6 % (11.5-14.5); White Blood Cell (WBC) Count 7.5 10x3/uL (4.8-10.8)
[2022-01-25 09:31] LABS: ALT (SGPT) 16 U/L (8-55); AST (SGOT) 19 U/L (5-34); Albumin 3.7 g/dL (3.4-4.8); Alkaline Phosphatase 60 U/L (40-110); Anion Gap 12 mmol/L (10-20); BUN (Urea Nitrogen) 15 mg/dL (9.8-20.1); Bilirubin, Total 0.5 mg/dL (0.2-1.2); Calc. Creatinine Clearance 0 mL/min (70-130); Carbon Dioxide 23 mmol/L (23-31); Chloride 100 mmol/L (98-107); Estimated GFR 72; Globulin 3.2 g/dL (2.4-3.5); Glucose 123 mg/dL (83-110); Lipase 5 U/L (8-78); Potassium 3.8 mmol/L (3.5-5.1); Protein, Total 6.9 g/dL (5.8-8.1); Sodium 131 mmol/L (136-145)
== END 2022-01-25 13:32 | disposition home or self-care (01) ==
LOC: ERS 08:11
DX: R07.9 Chest pain, unspecified (principal); M25.551 Pain in right hip
CPT/HCPCS: 36415; 71045; 72192; 80053; 83690; 84484; 85025; 93005; 94760; 96374; 96375; 96376; J2270; J2405

== ENCOUNTER 2022-04-09 13:28 | Outpatient (CLI) | payer MEDICARE | END 2022-04-09 13:29 | disposition home or self-care (01) | LOC: BICMAMMO 13:28 | PROVIDERS: ATTEND Family Medicine | DX: Z12.31 Encounter for screening mammogram for malignant neoplasm of breast (principal) | CPT/HCPCS: 77063; 77067 ==

== ENCOUNTER 2022-07-16 14:32 | Outpatient (CLI) | payer MEDICARE | END 2022-07-16 14:33 | disposition home or self-care (01) | LOC: BICRAD 14:32 | PROVIDERS: ATTEND Nurse Practitioner Family | DX: M25.551 Pain in right hip (principal); M25.552 Pain in left hip; M16.12 Unilateral primary osteoarthritis, left hip ==

== ENCOUNTER 2023-09-05 08:50 | Outpatient (CLI) | payer MEDICARE | END 2023-09-05 08:51 | disposition home or self-care (01) | LOC: BICRAD 08:50 | PROVIDERS: ATTEND Family Medicine | DX: J45.909 Unspecified asthma, uncomplicated (principal); I70.0 Atherosclerosis of aorta; R91.8 Other nonspecific abnormal finding of lung field; J98.4 Other disorders of lung | CPT/HCPCS: 71046 ==